=== PATIENT | male | born 1960 | race Caucasian/White ===

== ENCOUNTER 2018-01-07 09:49 | Day surgery (SDC) | payer BC ==
[~2018-01-07] VITALS: Ht 180.3 cm; Wt 72.6 kg
[~2018-01-07 09:49] MED LIST: ASPIRIN81 M2 PO; LIPITOR20 MG PO; PROZAC20 MG PO; VITAMIN D-3 401 EACH PO; ZANTAC150 MG PO
[2018-01-07 10:44] LABS: HEMATOCRIT 43.7 % (38.0-50.0); HEMOGLOBIN 14.7 G/DL (12.5-16.6); MCH 29.8 PG (29.0-34.0); MCHC 33.6 G/DL (30.0-36.0); MCV 88.6 FL (86-99); PLATELET COUNT 283 K/uL (156-360); RBC DIS.WIDTH-CV 12.5 % (11.8-14.6); RED BLOOD COUNT 4.93 M/uL (4.00-5.50); WHITE BLOOD COUNT 6.9 K/uL (4.1-10.2)
[2018-01-07 11:07] LABS: CHLORIDE 104 MEQ/L (99-109); POTASSIUM 4.7 MEQ/L (3.7-5.4); SODIUM 137 MEQ/L (136-147)
[2018-01-07 11:13] LABS: CREATININE 0.7 MG/DL (0.6-1.3); GFR ESTIMATE (CALCULATED) > 59 mL/min/ (58.99-99999); GLUCOSE 90 mg/dL (70-99); UREA NITROGEN (BUN) 14 mg/dL (9-23)
== END 2018-01-07 15:55 | disposition home or self-care (01) ==
LOC: CATH 09:49
PROVIDERS: Internal Medicine Cardiovascular Disease
DX: I25.10 Atherosclerotic heart disease of native coronary artery without angina pectoris (principal); I42.9 Cardiomyopathy, unspecified; Z82.49 Family history of ischemic heart disease and other diseases of the circulatory system; E78.5 Hyperlipidemia, unspecified
CPT/HCPCS: 80048; 85027; C1769; C1887; J1644; J2250; J3010